=== PATIENT | female | born 1985 | race Two or more races ===

== ENCOUNTER 2020-10-29 07:40 | Day surgery (SDC) | payer OTHER ==
[~2020-10-29] VITALS: Ht 162.6 cm; Wt 84.5 kg
[2020-10-29] MEDS ORDERED: PROPOFOL 1% 20 ML VIAL IVP ONE (07:41)
[2020-10-29] MEDS ORDERED: DEXAMETHASONE SOD PHOS 4 MG/ML VIAL IVP ONE (07:41)
[2020-10-29] MEDS ORDERED: MIDAZOLAM HCL 2 MG/2 ML VIAL IVP ONE (07:41)
[2020-10-29] MEDS ORDERED: ONDANSETRON HCL 4 MG/2 ML VIAL IVP ONE (07:41)
[2020-10-29] MEDS ORDERED: LIDOCAINE/PF 2% 5 ML SYRINGE IVP ONE (07:41)
[2020-10-29] MEDS ORDERED: FentaNYL CITRATE PF 100 MCG/2 ML VIAL IVP ONE (07:41)
[2020-10-29] MEDS ORDERED: SUCCINYLCHOLINE CHLORIDE 20 MG/ML 10 ML VIAL IVP ONE (07:41)
[2020-10-29] MEDS ORDERED: RINGERS SOLUTION,LACTATED 1,000 ML IV ONE ×2 (07:57→08:00)
[2020-10-29 08:18] LABS: COVID AG,FIA SOURCE NASOPHARYNGEAL
[2020-10-29] MEDS ORDERED: ADAL40PE5 SQ (08:43)
[2020-10-29 08:52] LABS: BASOPHILS % (AUTO) 0.5 % (0.0-2.0); EOSINOPHILS % (AUTO) 1.5 % (1.0-6.0); HEMATOCRIT 36.6 % (36-46); HEMOGLOBIN 12.2 g/dL (12.0-16.0); LYMPHOCYTES # (AUTO) 2.1 K/uL (1.0-4.8); LYMPHOCYTES % (AUTO) 30.4 % (22.0-44.0); MEAN CORPUSCULAR HGB CONC 33.2 G/dL (31.0-37.0); MEAN CORPUSCULAR VOLUME 94 fL (80-100); MONOCYTES # (AUTO) 0.8 K/uL (0.1-1.0); MONOCYTES % (AUTO) 10.8 % (2.0-9.0); NEUTROPHILS % (AUTO) 56.8 % (40.0-70.0); PLATELET COUNT (AUTO) 290 K/uL (150-450); RED BLOOD CELL COUNT(AUTO) 3.92 MIL/uL (4.00-5.20)
[2020-10-29 09:00] LABS: ANION GAP 7 mmol/L (8-16); CALCIUM, TOTAL 8.6 mg/dL (8.8-10.5); CARBON DIOXIDE 25 mmol/L (22-29); CHLORIDE 101 mmol/L (98-107); CREATININE 0.44 mg/dL (0.60-1.30); GLOMERULAR FILTR. RATE CALC > 60 mL/min (>60); GLUCOSE,RANDOM 101 mg/dL (70-110); POTASSIUM 3.7 mmol/L (3.5-5.1); SODIUM SERUM 133 mmol/L (136-145); UREA NITROGEN, BLOOD 7 mg/dL (7-18)
[2020-10-29] MEDS ORDERED: MISOPROSTOL 100 MCG TABLET VG ONE (09:15)
[2020-10-29 09:28] LABS: HCG,QUANTITATIVE 81759 mIU/mL (0-6)
[2020-10-29 09:40] LABS: INR 1.1 (0.9-1.1); PROTHROMBIN TIME 11.5 SEC (9.4-11.6)
[2020-10-29] MEDS ORDERED: DOXYCYCLINE HYCLATE 100 MG in DEXTROSE 5%-WATER 100 ML IV ONE (10:00)
[2020-10-29] MEDS ORDERED: MISOPROSTOL 100 MCG TABLET ONE (10:08)
[2020-10-29] MEDS ORDERED: METHYLERGONOVINE MALEATE 0.2 MG/ML VIAL ONE (10:13)
[2020-10-29] MEDS ORDERED: SILVER NITRATE APPLICATOR 1 EA STICK TP ONE (10:13)
[2020-10-29] MEDS ORDERED: FentaNYL CITRATE PF 100 MCG/2 ML VIAL IVP PRN (10:15)
[2020-10-29] MEDS ORDERED: HYDROmorphone 2 MG/ML VIAL IVP PRN (10:15)
[2020-10-29] MEDS ORDERED: MEPERIDINE-PF 25 MG/ML VIAL IVP PRN (10:15)
[2020-10-29] MEDS ORDERED: MEPERIDINE-PF 25 MG/ML VIAL ONE (10:38)
[2020-10-29] MEDS ORDERED: OXYGEN THERAPY IH SCH (20:00)
== END 2020-10-29 12:25 | disposition home or self-care (01) ==
LOC: SURGERY 07:40
PROVIDERS: ATTEND Obstetrics & Gynecology
DX: O02.1 Missed abortion (principal); Z83.3 Family history of diabetes mellitus; Z79.899 Other long term (current) drug therapy; Z98.890 Other specified postprocedural states
CPT/HCPCS: 36415; 59820; 80048; 84702; 85025; 85610; 85730; 86850; 86900; 86901; 87426; 88230; 88305; C9803; J0330; J1100; J2175; J2250; J2405; J2704; J3010; J3490 ×2; J7060; J7120; J2210